=== PATIENT | female | born 1990 | race African-American/Black ===

== ENCOUNTER 2023-03-07 13:07 | Emergency (ER) | payer BC ==
[2023-03-07 14:36] LABS: SARS-CoV-2 NAA Rapid Test Not Detected (NotDetected)
== END 2023-03-07 15:32 | disposition home or self-care (01) ==
LOC: CSHERS 13:07
DX: J06.9 Acute upper respiratory infection, unspecified (principal); Z20.822 Contact with and (suspected) exposure to COVID-19
CPT/HCPCS: 71046; 93005